=== PATIENT | female | born 1940 | race Two or more races ===

== ENCOUNTER 2018-02-12 12:15 | Outpatient (CLI) | payer OTHER ==
[~2018-02-12 12:15] MED LIST: ASPIR 8181 MG; BACLOFEN10 MG; HYZAAR 100-12.1 EACH; LEVAQUIN500 MG PO; TESSALON PERLE100 M1 PO; TUSSI PRES-B L120 M1 PO
== END 2018-02-12 15:21 | disposition home or self-care (01) ==
LOC: RAD 501 12:15
DX: M25.561 Pain in right knee (principal); M25.562 Pain in left knee